=== PATIENT | male | born 2000 | race Caucasian/White ===

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

== ENCOUNTER 2019-08-15 16:27 | Emergency (ER) | payer OTHER ==
[2019-08-15] MEDS ORDERED: LORazepam 0.5 MG TAB PO ONE (16:42)
[2019-08-15 16:50] VITALS: BP 139/84; TEMP 98.9; O2SAT 96
--- NOTE | 2019-08-15 19:21 | ED.PDOC ---
History of Present Illness - General Chief Complaint: Neuro Symptoms/Deficits Stated Complaint: "had a seizure today" Time Seen by Provider: 08/15/19 16:30 Source: patient Exam Limitations: clinical condition - History of Present Illness Initial Comments: The patient is a 19-year-old male presenting to the emergency room secondary to a 1 minute seizure. He does remember it. It was mainly shaking in his left upper extremity. He denies loss of consciousness. He does have a history of epilepsy and sometimes does lose consciousness. He reports that he has been compliant with his seizure medications of Trileptal and Depakote. No recent trauma. He denies any real overheating or becoming too dry. No recreational drug use. He reports that he generally has about 2 seizures per month even with the medications on board. The patient does have some longstanding cognitive deficiencies. He does seem well-known to some of the staff here as well as several of the other patients. His current presentation is apparently his normal behavior. He is pleasant and cooperative though he is not highly informative as to his medical history. Timing/Duration: other - 1 minute Severity: mild Improving Factors: nothing Worsening Factors: nothing Associated Symptoms: denies symptoms Allergies/Adverse Reactions: Allergies NO KNOWN ALLERGY Allergy (Verified 08/15/19 16:53) Home Medications: Ambulatory Orders Acetaminophen W/ Codeine [Tylenol W/ CODEINE #3] 1 ea PO PRN 12/18/18 Amoxicillin 875 mg PO BID 12/18/18 Amphetamine-Dextroamphetamine [Adderall 10 mg] 1 tab PO DAILY 12/18/18 Clonidine HCl (Adhd) [Clonidine HCl ER] 0.1 mg PO QID 12/18/18 Divalproex Sodium [Depakote] 500 mg PO BID 12/18/18 Oxcarbazepine [Trileptal] 600 mg PO BID 12/18/18 Paliperidone Palmitate [Invega Sustenna] 156 mg IM MONTHLY 12/18/18 Review of Systems - Review of Systems Constitutional: States: no symptoms reported EENTM: States: no symptoms reported Respiratory: States: no symptoms reported Cardiology: States: no symptoms reported Gastrointestinal/Abdominal: States: no symptoms reported Genitourinary: States: no symptoms reported Musculoskeletal: States: no symptoms reported Skin: States: no symptoms reported Neurological: States: see HPI Endocrine: States: no symptoms reported All other Systems: No Change from Baseline Past Medical History (General) - Patient Medical History Hx Seizures: Yes Hx Stroke: No Hx Congestive Heart Failure: No Hx Diabetes: No Surgical History: no surgical history - Vaccination History Hx Influenza Vaccination: Yes - Social History Hx Tobacco Use: No - Activities of Daily Living Hospice Agency (if applicable):: None - Female History Patient is a Female of Child Bearing Age (10 -59 yrs old): No - Triage Comment ED Triage Comment: pt voices he had a seizure today. pt ambulated into ED without difficulty. no s/s of distress noted. Family Medical History - Family History Mother Family History: No Known Physical Exam - Physical Exam General Appearance: Alert, Comfortable, No apparent distress Eye Exam: bilateral normal Ears, Nose, Throat: hearing grossly normal, normal pharynx Neck: non-tender, supple Respiratory: lungs clear, normal breath sounds, no respiratory distress, no accessory muscle use Cardiovascular/Chest: normal peripheral pulses, regular rate, rhythm, no edema Peripheral Pulses: radial,right: 2+, radial,left: 2+, dorsalis pedis,right: 2+, dorsalis pedis,left: 2+ Gastrointestinal/Abdominal: non tender, soft Rectal Exam: deferred Back Exam: no CVA tenderness, no vertebral tenderness Extremity: normal range of motion, non-tender, normal inspection, no pedal edema, normal capillary refill 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 He does apparently have a history of epilepsy. Laboratory work is within normal limits. He does not appear markedly dehydrated. It is possible that mild dehydration or mild overheating in the summer may have contributed to this episode. He does need to keep well-hydrated and avoid overheating. He does need to keep follow-up with his primary care doctor and his neurologist. No further seizure activity since arrival. ER warnings are given. Seizure precautions given. [email or web address] The patient was discharged when the computers were down so his discharge paperwork is handwritten. - Results/Orders Results/Orders: Laboratory Tests 08/15/19 08/15/19 08/15/19 16:55 16:55 16:55 WBC 6.9 RBC 4.77 Hgb 15.7 Hct 45.6 MCV 95.6 H MCH 33.0 H MCHC 34.5 RDW 13.0 Plt Count 173 MPV 10.5 H Absolute Neuts (auto) 3.40 Absolute Lymphs (auto) 2.60 Absolute Monos (auto) 0.50 Absolute Eos (auto) 0.30 Absolute Basos (auto) 0.10 Neutrophils % 50.0 Lymphocytes % 37.4 Monocytes % 6.6 Eosinophils % 5.0 Basophils % 1.0 Sodium 140 Potassium 4.1 Chloride 106 Carbon Dioxide 26 Anion Gap 12.1 BUN 10 Creatinine 0.80 BUN/Creatinine Ratio 12.5 Random Glucose 93 Serum Osmolality 278.1 Lactic Acid Calcium 9.6 Magnesium 1.8 Total Bilirubin 0.5 AST 41 ALT 53 Alkaline Phosphatase 105 Creatine Kinase 209 H* CK-MB (CK-2) 1.2 CK-MB (CK-2) % Not Reportable Troponin I < 0.02 Serum Total Protein 7.5 Albumin 4.7 Globulin 2.8 Albumin/Globulin Ratio 1.7 Amylase 72 Lipase 26 Valproic Acid Ethyl Alcohol < 5.40 08/15/19 08/15/19 16:55 16:55 WBC RBC Hgb Hct MCV MCH MCHC RDW Plt Count MPV Absolute Neuts (auto) Absolute Lymphs (auto) Absolute Monos (auto) Absolute Eos (auto) Absolute Basos (auto) Neutrophils % Lymphocytes % Monocytes % Eosinophils % Basophils % Sodium Potassium Chloride Carbon Dioxide Anion Gap BUN Creatinine BUN/Creatinine Ratio Random Glucose Serum Osmolality Lactic Acid 1.5 Calcium Magnesium Total Bilirubin AST ALT Alkaline Phosphatase Creatine Kinase CK-MB (CK-2) CK-MB (CK-2) % Troponin I Serum Total Protein Albumin Globulin Albumin/Globulin Ratio Amylase Lipase Valproic Acid 68.1 Ethyl Alcohol Departure - Departure Clinical Impression: Epilepsy Qualifiers: Epilepsy type: partial idiopathic, localized onset Intractability: not intractable Status epilepticus: without status epilepticus Qualified Code(s): G40.009 - Localization-related (focal) (partial) idiopathic epilepsy and epileptic syndromes with seizures of localized onset, not intractable, without status epilepticus Disposition: Discharge to Home or Self Care Condition: Fair Departure Forms: ED Discharge - Pt. Copy, Patient Portal Self Enrollment Instructions: Seizures, Adult (DC) Diet: regular diet Activity: increase activity as tolerated, other - Seizure precautions Referrals: Aura Castillo FNP [Primary Care Provider] - 1-2 Weeks Home Medications: Ambulatory Orders Acetaminophen W/ Codeine [Tylenol W/ CODEINE #3] 1 ea PO PRN 12/18/18 Amoxicillin 875 mg PO BID 12/18/18 Amphetamine-Dextroamphetamine [Adderall 10 mg] 1 tab PO DAILY 12/18/18 Clonidine HCl (Adhd) [Clonidine HCl ER] 0.1 mg PO QID 12/18/18 Divalproex Sodium [Depakote] 500 mg PO BID 12/18/18 Oxcarbazepine [Trileptal] 600 mg PO BID 12/18/18 Paliperidone Palmitate [Invega Sustenna] 156 mg IM MONTHLY 12/18/18
[2019-08-15] MEDS ORDERED: NITROGLYCERIN 0.4 MG 25 EA TAB SL ONE (19:31)
--- NOTE | 2019-08-20 07:09 | RAD ---
EXAM DESCRIPTION: Obstructive series, 3 radiographs CLINICAL HISTORY: Abdomen pain FINDINGS/ IMPRESSION: Normal cardiomediastinal silhouette. The lungs are clear. Normal bowel gas pattern. No evidence of mechanical bowel obstruction, pneumatosis or free intraperitoneal air. No organomegaly or obvious abdominal mass lesion Electronically signed by: Trunog Avina MD 08/20/2019 7:08 AM CDT
== END 2019-08-15 19:37 | disposition home or self-care (01) ==
LOC: ER 16:27
DX: G40.009 Localization-related (focal) (partial) idiopathic epilepsy and epileptic syndromes with seizures of localized onset, not intractable, without status epilepticus (principal); Z79.899 Other long term (current) drug therapy

== ENCOUNTER → 2019-11-14 | Outpatient (CLI) | payer OTHER ==
--- NOTE | 2019-11-14 19:18 | RAD ---
EXAM DESCRIPTION: Foot,Left 3 Views CLINICAL HISTORY: 19 years Male, PAIN IN LEFT FOOT COMPARISON: None. Findings: 3 view(s)/radiograph(s) Left third and fourth metatarsal neck fractures. No other fracture identified. No dislocation. Lisfranc alignment is maintained. No focal soft tissue swelling. Joint spaces are maintained. IMPRESSION: Left third and fourth metatarsal neck fractures. Electronically signed by: Steven Ceballos MD 11/14/2019 7:16 PM CDT
== END ==
LOC: RAD 08:55
PROVIDERS: ATTEND Orthopaedic Surgery
DX: S92.344A Nondisplaced fracture of fourth metatarsal bone, right foot, initial encounter for closed fracture (principal); S92.354A Nondisplaced fracture of fifth metatarsal bone, right foot, initial encounter for closed fracture

== ENCOUNTER → 2019-12-12 | Outpatient (CLI) | payer OTHER ==
--- NOTE | 2019-12-13 12:47 | RAD ---
EXAM DESCRIPTION: Foot x-ray,Left 3 Views CLINICAL HISTORY: 19 years, Male, CLOSED FRACTURE OF METATARSAL BONE LEFT COMPARISON: Previous x-ray left foot November 14, 2019 TECHNIQUE: AP, lateral, and oblique views of the left foot FINDINGS: Healing fractures of the necks of second through fourth metatarsals which may involve the physes. Bones of the toes appear intact. First and fifth metatarsals appear normal. No midfoot malalignment. Mild spurring at the lateral distal calcaneus. Oblique views show significant callus formation around the fracture sites. Lateral view shows intact talus and calcaneus. IMPRESSION: Healing fractures of distal second through fourth metatarsals. Electronically signed by: Marshall Solis MD 12/13/2019 12:45 PM CDT
== END ==
LOC: RAD 14:14
PROVIDERS: ATTEND Orthopaedic Surgery
DX: S92.325D Nondisplaced fracture of second metatarsal bone, left foot, subsequent encounter for fracture with routine healing (principal); S92.335D Nondisplaced fracture of third metatarsal bone, left foot, subsequent encounter for fracture with routine healing; S92.345D Nondisplaced fracture of fourth metatarsal bone, left foot, subsequent encounter for fracture with routine healing

== ENCOUNTER → 2020-02-24 | Outpatient (CLI) | payer OTHER | LOC: GMA MATASK 17:02 | PROVIDERS: ATTEND Family Medicine | DX: Z79.899 Other long term (current) drug therapy (principal); R53.83 Other fatigue ==